=== PATIENT | female | born 1940 | race Hispanic/Latino ===

== ENCOUNTER 2018-02-23 09:51 | Outpatient (CLI) | payer OTHER | END 2018-02-23 09:52 | disposition home or self-care (01) | LOC: C.CTH 09:51 ==

== ENCOUNTER 2018-06-02 12:35 | Outpatient (CLI) | payer OTHER | END 2018-06-02 12:36 | disposition home or self-care (01) | LOC: C.LAB 12:35 | DX: N18.4 Chronic kidney disease, stage 4 (severe) (principal) ==